=== PATIENT | male | born 1950 | race Caucasian/White ===

== ENCOUNTER 2017-08-24 07:53 | Emergency (ER) | payer OTHER ==
[2017-08-24] MEDS ORDERED: ONDANSETRON 4 MG INJ IV (08:24)
[2017-08-24] MEDS ORDERED: morphine 4 MG/ML VIAL IV (08:24)
[2017-08-24 08:48] LABS: ADD MAN DIFF? NO
[2017-08-24] MEDS: LACTULOSE 30ML CUP PO (08:53)
[2017-08-24] MEDS: NA PHOSPHATE/BIPHOS 133 ML ENEMA PR (08:54)
[2017-08-24] MEDS: SOD CHLORIDE 0.9% 1,000 ML IV (08:54)
[2017-08-24] MEDS: BISACODYL 10 MG SUPP PR (08:54)
[2017-08-24 08:59] LABS: WHITE BLOOD COUNT 7.4 10^3/ul (4.8-10.8)
[2017-08-24 08:59] LABS: BASOPHILS % 0.4 % (0.0-2.0); EOSINOPHILS # 0.1 10^3/ul (0.0-0.5); EOSINOPHILS % 1.3 % (0.0-7.0); HEMATOCRIT 41.5 % (42.0-52.0); HEMOGLOBIN 13.4 g/dl (14.0-18.0); LYMPHOCYTES # 2.3 10^3/ul (0.8-2.9); LYMPHOCYTES % 30.9 % (15.0-51.0); MEAN CORPUSCULAR HEMOGLOBIN 26.3 pg (29.0-33.0); MEAN CORPUSCULAR HGB CONC 32.3 g/dl (32.0-37.0); MEAN CORPUSCULAR VOLUME 81.5 fl (82.0-101.0); MEAN PLATELET VOLUME 11.5 fl (7.4-10.4); MONOCYTE # 0.4 10^3/ul (0.3-0.9); MONOCYTES % 5.9 % (0.0-11.0); NEUTROPHIL # 4.6 10^3/ul (1.6-7.5); NEUTROPHILS % 61.4 % (39.0-77.0); PLATELET COUNT 222 10^3/UL (140-415); RED BLOOD COUNT 5.09 10^6/ul (4.70-6.10); RED CELL DISTRIBUTION WIDTH 13.2 % (11.5-14.5)
[2017-08-24 09:09] LABS: ALANINE AMINOTRANSFERASE 36 IU/L (13-69); ALBUMIN 4.5 g/dl (3.3-4.9); ALBUMIN/GLOBULIN RATIO 1.07; ALKALINE PHOSPHATASE 81 IU/L (42-121); ANION GAP 20 (8-16); ASPARTATE AMINO TRANSFERASE 28 IU/L (15-46); BILIRUBIN,INDIRECT 0.2 mg/dl (0-1.1); BILIRUBIN,TOTAL 0.2 mg/dl (0.2-1.3); BLOOD UREA NITROGEN 14 mg/dl (7-20); CALCIUM 9.8 mg/dl (8.4-10.2); CARBON DIOXIDE 27 mmol/L (21-31); CHLORIDE 105 mmol/L (97-110); CREATININE 0.76 mg/dl (0.61-1.24); GLUCOSE 157 mg/dl (70-220); LIPASE 134 U/L (23-300); POTASSIUM 4.7 mmol/L (3.5-5.1); SODIUM 147 mmol/L (135-144); TOTAL PROTEIN 8.7 g/dl (6.1-8.1)
== END 2017-08-24 09:40 | disposition home or self-care (01) ==
LOC: E/R 07:53
DX: K59.00 Constipation, unspecified (principal); I10 Essential (primary) hypertension; E11.9 Type 2 diabetes mellitus without complications
CPT/HCPCS: 36415; 74176; 80053; 83690; 85025; 99285-25

== ENCOUNTER 2018-03-23 05:32 | Day surgery (SDC) | payer OTHER ==
[2018-03-23] MEDS: SOD CHLORIDE 0.9% 1,000 ML IV (06:00)
[2018-03-23] MEDS ORDERED: LIDOCAINE 1% (MDV) 20 ML INJ (07:47)
[2018-03-23] MEDS ORDERED: PROPOFOL 20 ML (07:47)
[2018-03-23] MEDS: CEFAZOLIN 2 GM/50 ML (PMX) 50 ML IVPB (08:00)
[2018-03-23] MEDS ORDERED: FENTAnyl 50 MCG/ML VIAL (08:07)
[2018-03-23] MEDS ORDERED: CEFAZOLIN 1 GM INJ ×2 (08:07)
[2018-03-23] MEDS: BUPIVACAINE 0.25% (MPF) 30 ML INJ (08:09)
[2018-03-23] MEDS: POLYMYXIN/BACITRACIN 1L IRRIG IRR ×2 (08:09)
[2018-03-23] MEDS ORDERED: ONDANSETRON 4 MG INJ (08:24)
[2018-03-23] MEDS ORDERED: HYDROmorphONE 1 MG/5 ML IV SYRINGE IV (09:00)
[2018-03-23] MEDS ORDERED: ONDANSETRON 4 MG INJ IV (09:00)
[2018-03-23] MEDS ORDERED: HYDROCODONE/APAP (5/325) TAB PO (09:00)
[2018-03-23] MEDS ORDERED: LABETALOL HCL 20MG INJ IV (09:00)
[2018-03-23] MEDS ORDERED: hydrALAzine 20 MG INJ IV (09:00)
[2018-03-23] MEDS: HYDROmorphONE 1 MG/5 ML IV SYRINGE IV (09:16)
== END 2018-03-23 10:11 | disposition home or self-care (01) ==
LOC: SDS 05:32
DX: K40.90 Unilateral inguinal hernia, without obstruction or gangrene, not specified as recurrent (principal); E11.9 Type 2 diabetes mellitus without complications; I10 Essential (primary) hypertension
CPT/HCPCS: 49507; 71045; 82962

== ENCOUNTER 2019-01-21 05:50 | Day surgery (SDC) | payer OTHER ==
[2019-01-21] MEDS ORDERED: LIDOCAINE 2% (SDV) 5 ML INJ (07:44)
[2019-01-21] MEDS ORDERED: PROPOFOL 40 ML (07:44)
[2019-01-21] MEDS ORDERED: ALBUTEROL 0.083% (NEB) 2.5 MG/3 ML AMP HHN (08:00)
[2019-01-21] MEDS ORDERED: hydrALAzine 20 MG INJ IV (08:00)
[2019-01-21] MEDS ORDERED: EPHEDrine 25 MG/5 ML SYG IV (08:00)
[2019-01-21] MEDS ORDERED: ACETAMINOPHEN 500 MG TAB PO (08:00)
[2019-01-21] MEDS ORDERED: ONDANSETRON 4 MG INJ IV (08:00)
[2019-01-21] MEDS ORDERED: LABETALOL HCL 20MG INJ IV (08:00)
[2019-01-21] MEDS ORDERED: FENTAnyl 50 MCG/ML VIAL IV ×2 (08:00)
== END 2019-01-21 09:53 | disposition home or self-care (01) ==
LOC: GIL 05:50
DX: Z12.11 Encounter for screening for malignant neoplasm of colon (principal); K64.4 Residual hemorrhoidal skin tags; E11.9 Type 2 diabetes mellitus without complications; I10 Essential (primary) hypertension; Z79.84 Long term (current) use of oral hypoglycemic drugs
CPT/HCPCS: 45378; 82962